=== PATIENT | female | born 1990 | race Asian ===

== ENCOUNTER 2025-02-20 01:14 | Emergency (ER) | payer OTHER ==
[~2025-02-20] VITALS: Ht 165.1 cm; Wt 94.0 kg
[2025-02-20 01:15] VITALS: TEMP 97.9
[2025-02-20] MEDS: KETOROLAC TROMETHAMINE 30 MG/ML VIAL IM ONE (03:04)
[2025-02-20 05:30] VITALS: BP 129/86; PULSE 82; RESP 18; O2SAT 99
[2025-02-20] MEDS ORDERED: IBUP-1492 PO (05:30)
== END 2025-02-20 06:22 | disposition home or self-care (01) ==
LOC: EMS 01:18
DX: M76.61 Achilles tendinitis, right leg (principal); I10 Essential (primary) hypertension; J45.909 Unspecified asthma, uncomplicated; Z90.49 Acquired absence of other specified parts of digestive tract; Z88.0 Allergy status to penicillin; Z88.8 Allergy status to other drugs, medicaments and biological substances
CPT/HCPCS: 73610; 99283; 96372; J1885

== ENCOUNTER 2025-05-10 23:03 | Emergency (ER) | payer OTHER ==
[~2025-05-10] VITALS: Ht 165.1 cm; Wt 97.0 kg
[~2025-05-10 23:03] MED LIST: IBUP-1492 PO
[2025-05-11 00:19] LABS: COVID AG,FIA SOURCE NASAL SWAB
[2025-05-11 00:28] LABS: SARS-COV2 (COVID) ANTIGEN,FIA Negative (Negative)
[2025-05-11 00:29] LABS: INFLUENZA TYPE A NEGATIVE FOR TYPE A (NEGATIVE); INFLUENZA TYPE B NEGATIVE FOR TYPE B (NEGATIVE)
[2025-05-11 01:05] VITALS: PULSE 72; RESP 16; O2SAT 99
[2025-05-11] MEDS ORDERED: 0.9% SODIUM CHLORIDE 5 ML NEB SOLUTION NEB ONE (01:19)
[2025-05-11] MEDS: ALBUTEROL SULFATE 2.5 MG/0.5 ML NEB SOLUTION NEB ONE (01:21)
[2025-05-11] MEDS: IPRATROPIUM BROMIDE 0.5 MG/2.5 ML NEB SOLUTION NEB ONE (01:21)
[2025-05-11 01:30] VITALS: PULSE 78; RESP 16; O2SAT 99
[2025-05-11] MEDS ORDERED: PRED-554 PO (02:26)
[2025-05-11 04:29] VITALS: BP 138/85; PULSE 80; RESP 16; TEMP 98.205296; O2SAT 99
== END 2025-05-11 04:29 | disposition home or self-care (01) ==
LOC: EMS 23:04
DX: J45.901 Unspecified asthma with (acute) exacerbation (principal); I10 Essential (primary) hypertension; Z90.49 Acquired absence of other specified parts of digestive tract; Z88.0 Allergy status to penicillin; Z20.822 Contact with and (suspected) exposure to COVID-19
CPT/HCPCS: 99284; 71045; 87426; 87804; 94640; J7512; J7613